=== PATIENT | male | born 1990 ===

== ENCOUNTER 2019-11-16 02:44 | Emergency (ER) | payer SELFPAY ==
[2019-11-16 03:25] VITALS: BP 137/94
[2019-11-16 03:37] LABS: Bacteria,Urine 1+ /HPF (Negative); Bilirubin,Urine NEG (Negative); Blood,Urine SM (Negative); Color,Urine Yellow (Yellow); Mucus,Urine 2+ /HPF; Urobilinogen,Urine < 2.0 mg/dL (<2.0)
[2019-11-16 03:49] LABS: WBC,Urine > 182.0 /HPF (0.0-6.0)
[2019-11-16] MEDS ORDERED: LIDOCAINE-MPF (1%) 10 MG/1 ML VIAL 5 ML INFILTRATI ONE (04:40)
--- NOTE | 2019-11-16 04:44 | Emergency Department Report ---
ED Male HPI - General Chief complaint: Urogenital-Male Stated complaint: BURNING URINATION Source: patient Mode of arrival: Ambulatory Limitations: No Limitations - History of Present Illness Initial comments: 29-year-old male presents to the emergency room complaining of penile discharge and burning on urination x4 days. Patient does admit to having unprotected intercourse. Patient denies any fever chills no nausea no vomiting abdominal pain. Patient states he is not allergic to any medications currently takes no medications on a daily basis and has no past medical history. Onset/Timin -: days(s) Location: penis Radiation: none Severity: moderate Quality: burning Consistency: constant Improves with: none Worsens with: urination discharge - Related Data Previous Rx's Medication Instructions Recorded Last Taken Type Azithromycin 1,000 mg PO ONCE #2 tablet 11/16/19 Unknown Rx Doxycycline Hyclate 100 mg PO BID 10 Days #20 tablet. 11/16/19 Unknown Rx Allergies Allergy/AdvReac Type Severity Reaction Status Date / Time No Known Allergies Allergy Unverified 11/16/19 03:11 ED Review of Systems ROS: Stated complaint: BURNING URINATION Other details as noted in HPI Comment: All other systems reviewed and negative ED Past Medical Hx - Past Medical History Previous Medical History?: Yes Hx Hypertension: Yes - Surgical History Past Surgical History?: No - Social History Smoking Status: Current Every Day Smoker Substance Use Type: None - Medications Home Medications: Home Medications Medication Instructions Recorded Confirmed Last Taken Type Azithromycin 1,000 mg PO ONCE #2 tablet 11/16/19 Unknown Rx Doxycycline Hyclate 100 mg PO BID 10 Days #20 tablet. 11/16/19 Unknown Rx ED Physical Exam - General Limitations: No Limitations General appearance: alert, in no apparent distress - Head Head exam: Present: atraumatic, normocephalic - Eye Eye exam: Present: normal appearance - ENT ENT exam: Present: mucous membranes moist - GI/Abdominal GI/Abdominal exam: Absent: soft, distended, tenderness - Extremities Exam Extremities exam: Present: normal inspection, full ROM - Back Exam Back exam: Present: normal inspection, full ROM - Neurological Exam Neurological exam: Present: alert, oriented X3, normal gait - Psychiatric Psychiatric exam: Present: normal affect, normal mood - Skin Skin exam: Present: warm, dry, intact, normal color. Absent: rash ED Course Vital Signs 11/16/19 02:51 Temperature 97.8 F Pulse Rate 96 H Respiratory 18 Rate Blood Pressure 137/94 O2 Sat by Pulse 98 Oximetry ED Medical Decision Making - Medical Decision Making 29-year-old male presents to the emergency room complaining of penile discharge and burning on urination x4 days. Patient does admit to having unprotected intercourse. Patient denies any fever chills no nausea no vomiting abdominal pain. Patient states he is not allergic to any medications currently takes no medications on a daily basis and has no past medical history. Patient will be treated for gonorrhea with Rocephin 250 mg IM. Patient be given a prescription for a azithromycin 1 g for chlamydia. Patient be given a prescription for doxycycline and to follow-up at [facility] clinic for full STD evaluation and treatment. Critical care attestation.: If time is entered above; I have spent that time in minutes in the direct care of this critically ill patient, excluding procedure time. ED Disposition Clinical Impression: Concern about STD in male without diagnosis, Dysuria, Penile discharge Disposition: DC- TO HOME OR SELFCARE Is pt being admited?: No Does the pt Need Aspirin: No Condition: Stable Instructions: Sexually Transmitted Diseases (ED), Safe Sex (ED) Additional Instructions: Complete antibiotics as prescribed. Follow-up at the [facility] for full STD evaluation and treatment. Prescriptions: Azithromycin 1,000 mg PO ONCE #2 tablet Doxycycline Hyclate 100 mg PO BID 10 Days #20 tablet. Referrals: PRIMARY CARE, [Primary Care Provider] - 3-5 Days [facility] [Outside] - 3-5 Days Forms: Work/School Release Form(ED)
== END 2019-11-16 05:15 | disposition home or self-care (01) ==
LOC: ED 02:44
DX: R30.0 Dysuria (principal); R36.9 Urethral discharge, unspecified; I10 Essential (primary) hypertension; F17.200 Nicotine dependence, unspecified, uncomplicated; Z20.2 Contact with and (suspected) exposure to infections with a predominantly sexual mode of transmission
CPT/HCPCS: 81001; 96372; 99283; J0696